=== PATIENT | male | born 1960 | race Caucasian/White ===

== ENCOUNTER 2025-04-26 06:52 | Day surgery (SDC) | payer MEDICARE ==
[2025-04-25 08:54] VITALS: BMI 29.5
[2025-04-26 08:40] LABS: Hematocrit 44.7 % (38.8-50.0); Hemoglobin 15.2 g/dL (13.5-17.5)
[2025-04-26] MEDS ORDERED: Lidocaine 1% w/Epinephrine 1:200K 30 ML VIAL ONE (08:50)
[2025-04-26] MEDS ORDERED: Bacitracin 1 PK ONE (08:50)
[2025-04-26] MEDS ORDERED: PROPOFOL 20 ML ONE ×2 (08:51→08:54)
[2025-04-26] MEDS ORDERED: Lidocaine 1% PF 5 ML VIAL ONE (08:52)
[2025-04-26] MEDS ORDERED: Ondansetron PF 4 MG/2 ML Vial ONE (08:52)
[2025-04-26 08:56] LABS: Anion Gap 11 mmol/L (10-20); BUN (Urea Nitrogen) 17 mg/dL (8.4-25.7); Calc. Creatinine Clearance 67 mL/min (70-130); Calcium 8.8 mg/dL (7.8-10.44); Carbon Dioxide 28 mmol/L (23-31); Chloride 107 mmol/L (98-107); Glucose 91 mg/dL (80-115); Potassium 4.0 mmol/L (3.5-5.1); Sodium 142 mmol/L (136-145)
[2025-04-26] MEDS ORDERED: CEFAZOLIN 1 GM VIAL ONE (09:12)
== END 2025-04-26 11:50 | disposition home or self-care (01) ==
LOC: CSHSDC 06:52
PROVIDERS: ATTEND Otolaryngology Plastic Surgery within the Head & Neck
PROC: 0CB80ZZ Excision of Right Parotid Gland, Open Approach (ICD-10-PCS; principal; 2025-04-26)
DX: D11.0 Benign neoplasm of parotid gland (principal); E78.00 Pure hypercholesterolemia, unspecified; F32.A Depression, unspecified; Z79.899 Other long term (current) drug therapy
CPT/HCPCS: 42410; 80048; 85014; 85018; J0690; J1100; J2405; J2704; J3010; 36415; 88307